=== PATIENT | male | born 1960 | race Two or more races ===

== ENCOUNTER 2016-10-08 13:18 | Day surgery (SDC) | payer OTHER, SELFPAY ==
[~2016-10-08 13:18] MED LIST: MULTIVITAMINS1 EAC6 PO; POLY-VI-SOL WIT50 ML PO
[2016-10-08 13:51] LABS: BASO % 0.3 % (0-2); EOS % 0.7 % (0-7); EOSINOPHIL ABSOLUTE COUNT 0.1 tho/cmm (0.0-0.7); HCT-HEMATOCRIT 46.6 % (36.0-53.5); HGB-HEMOGLOBIN 16.1 gm/dl (13.5-17.0); IMMATURE GRANULOCYTES ABSOLUTE 0.01 tho/cmm (0-0.03); IMMATURE GRANULOCYTES PERCENT 0.1 % (0-0.3); LYMPH % 29.1 % (20-45); MCHC MEAN CORPUSCULAR HGB CONC 34.5 % (32.0-36.0); MCV (MEAN CELL VOLUME) 98.5 fl (82.0-96.0); MEAN PLATELET VOLUME 10.2 cmc (9.4-12.4); MONO % 9.1 % (0-12); MONOCYTE ABSOLUTE COUNT 0.6 tho/cmm (0.0-1.2); NEUTROPHIL ABSOLUTE COUNT 4.3 tho/cmm (1.6-8.0); NEUTROPHIL-AUTOMATED 4.3 tho/cmm (1.6-8.0); NEUTROPHILS % 60.7 % (40-80); PLATELET COUNT 201 tho/cmm (150-450); RED BLOOD COUNT 4.73 mil/cmm (4.40-5.70); RED CELL DISTRIBUTION WIDTH 12.6 % (12.4-16.4)
[2016-10-08 14:01] LABS: PROTHROMBIN TIME 11.4 SECONDS (9.0-13.6)
[2016-10-08 14:15] LABS: BLOOD UREA NITROGEN 15 mg/dl (6-24); CALCIUM 9.1 mg/dl (8.5-10.5); CARBON DIOXIDE-VENOUS 26 mmol/L (22-32); CREATININE 0.87 mg/dl (0.60-1.30); GLUCOSE 109 mg/dL (70-110); eGFR VALUE FOR BLACK >90 mL/Min
[2016-10-08 14:19] LABS: ANION GAP 14 mmol/L (0-20); CHLORIDE 101 mmol/l (96-110); POTASSIUM 4.2 mmol/L (3.7-5.1); SODIUM 137 mmol/L (135-145)
== END 2016-10-08 16:23 ==
LOC: ENDOS 13:18 → SHSB 13:19 → ENDOS 14:16
PROVIDERS: Anesthesiology; Internal Medicine Gastroenterology
PROC: 0DBL8ZX Excision of Transverse Colon, Via Natural or Artificial Opening Endoscopic, Diagnostic (ICD-10-PCS; principal; 2016-10-08)
PROC: 0DBN8ZX Excision of Sigmoid Colon, Via Natural or Artificial Opening Endoscopic, Diagnostic (ICD-10-PCS; 2016-10-08)
PROC: 0DB48ZX Excision of Esophagogastric Junction, Via Natural or Artificial Opening Endoscopic, Diagnostic (ICD-10-PCS; 2016-10-08)
PROC: 0DB68ZX Excision of Stomach, Via Natural or Artificial Opening Endoscopic, Diagnostic (ICD-10-PCS; 2016-10-08)
DX: D12.5 Benign neoplasm of sigmoid colon (principal); D12.3 Benign neoplasm of transverse colon; K64.8 Other hemorrhoids; K21.9 Gastro-esophageal reflux disease without esophagitis; F41.9 Anxiety disorder, unspecified; F32.9 Major depressive disorder, single episode, unspecified; Z90.49 Acquired absence of other specified parts of digestive tract; F17.210 Nicotine dependence, cigarettes, uncomplicated